=== PATIENT | female | born 1990 | race Caucasian/White ===

== ENCOUNTER 2019-01-29 00:42 | Emergency (ER) | payer OTHER ==
[~2019-01-29] VITALS: Ht 177.8 cm; Wt 122.5 kg
[~2019-01-29 00:42] MED LIST: ACUTANE; ALBUTEROL INHAL17 GM IH; ALTACE10 MG PO; BACTRIM DS TAB1 EACH PO; CIPROFLOXACIN500 M1 PO; DIOVAN160 MG PO; FLAGYL500 MG PO; IBUPROFEN 800800 M1 PO; LEVAQUIN 500 M500 MG PO; LISINOPRIL10 MG PO; LUTERA1 EACH PO; MAGNESIUM250 M1 PO; MEDROLDOSEPACK PO; NORCO 5-325 TA1 EACH PO; NORTRIPTYLINE H10 M1 PO; SERTRALINE HCL50 MG PO; TRAZODONE HCL50 MG PO; ULTRAM 50MG TAB50 MG PO; VISTARIL 25 MG25 M1 PO; ZOFRAN ODT4 MG PO
[2019-01-29] MEDS ORDERED: ZYRTEC10 M5 PO (00:51)
[2019-01-29] MEDS ORDERED: PROZAC20 MG PO (00:51)
[2019-01-29 01:42] LABS: HEMATOCRIT 41.3 % (37.0-47.0); MCH 27.7 pg (26.0-34.0); MCHC 33.8 g/dL (28.0-37.0); RBC 5.03 mil/uL (4.20-5.00); RDW 15.4 % (10.5-14.5); WBC 5.7 thou/uL (4.0-11.0)
[2019-01-29 01:49] LABS: ANION GAP 15 mmol/L (7-16); BUN 14 mg/dL (7-18); CALCIUM 9.2 mg/dL (8.5-10.1); CHLORIDE 105 mmol/L (98-107); CO2 22 mmol/L (21-32); CREATININE 1.1 mg/dL (0.6-1.0); GLUCOSE 94 mg/dL (74-106); POTASSIUM 3.5 mmol/L (3.5-5.1); SODIUM 142 mmol/L (136-145)
[2019-01-29 01:54] LABS: SALICYLATE < 2.8 mg/dL (2.8-20.0)
[2019-01-29 04:10] LABS: URINE BILIRUBIN NEGATIVE (Negative); URINE BLOOD TRACE (Negative); URINE CLARITY CLEAR; URINE COLOR YELLOW; URINE GLUCOSE-RANDOM* NEGATIVE (Negative); URINE KETONES NEGATIVE (Negative); URINE LEUKOCYTES-REFLEX NEGATIVE (Negative); URINE NITRITE-REFLEX NEGATIVE (Negative); URINE PROTEIN (DIPSTICK) NEGATIVE (Negative); URINE SPECIFIC GRAVITY <= 1.005 (1.005-1.035); URINE UROBILINOGEN 0.2 E.U./dl (0.2-1.0)
[2019-01-29 04:19] LABS: AMP/METHAMP Negative (Negative); BARBITURATES Negative (Negative); BENZODIAZEPINES Negative (Negative); COCAINE Negative (Negative); METHADONE Negative (Negative); OPIATES Negative (Negative); PCP Negative (Negative)
[2019-01-29 05:01] VITALS: BP 113/73
== END 2019-01-29 04:55 | disposition home or self-care (01) ==
LOC: ER 00:42
PROVIDERS: Emergency Medicine
DX: F10.121 Alcohol abuse with intoxication delirium (principal); F32.9 Major depressive disorder, single episode, unspecified; I10 Essential (primary) hypertension; F17.210 Nicotine dependence, cigarettes, uncomplicated; Z88.1 Allergy status to other antibiotic agents; Z88.8 Allergy status to other drugs, medicaments and biological substances